=== PATIENT | female | born 1945 | race Caucasian/White ===

== ENCOUNTER → 2017-11-27 | Outpatient (CLI) | payer MEDICARE, OTHER ==
--- NOTE | 2017-11-27 13:53 | US ---
EXAM DESCRIPTION: Venous,Lower Extremity LT CLINICAL HISTORY: ACUTE EMBOLISM OF UNSPECIFIED DEEP VEINS COMPARISON: None Available. TECHNIQUE: Left lower extremity venous duplex FINDINGS: Doppler evaluation of the left lower extremity deep veins was performed. Normal color flow is seen in the common femoral, superficial femoral, profunda femoral and greater saphenous veins. Normal flow is seen in the popliteal vein and veins below the knee in the calf. Normal venous compressibility and flow augmentation. IMPRESSION: Negative for evidence of deep venous thrombosis on left lower extremity venous Doppler sonogram. Electronically signed by: Erich Serra MD 11/27/2017 1:52 PM CDT
== END ==
LOC: US 08:15
PROVIDERS: ATTEND Nurse Practitioner Family
DX: I82.402 Acute embolism and thrombosis of unspecified deep veins of left lower extremity (principal)

== ENCOUNTER → 2018-04-11 | Outpatient (CLI) | payer OTHER ==
--- NOTE | 2018-04-11 16:27 | US ---
EXAM DESCRIPTION: Pelvis Transvaginal CLINICAL HISTORY: 73 years Female, ABN VAGINAL BLEEDING COMPARISON: None. TECHNIQUE: Multiple static transverse and longitudinal sonographic images of the pelvis were obtained transabdominally and transvaginally. FINDINGS: The uterus is enlarged and heterogenous and measures 16.7 x 9.8 x 10.5 cm. There is a 12.6 x 9.8 x 10.5 cm heterogenous mass in the region of the endometrium. Findings are concerning for endometrial carcinoma versus large fibroid. Bilateral ovaries are not visualized. No evidence of free fluid. IMPRESSION: 12.6 x 9.8 x 10.5 cm heterogenous mass is noted in the region of the endometrial canal of the uterus. Findings are concerning for endometrial carcinoma versus large fibroid. MRI of the pelvis with and without contrast can be performed for further evaluation. Electronically signed by: Desi Simons MD 04/11/2018 4:25 PM [employer]
== END ==
LOC: US 14:01
PROVIDERS: ATTEND Nurse Practitioner Family
DX: N93.9 Abnormal uterine and vaginal bleeding, unspecified (principal); R19.09 Other intra-abdominal and pelvic swelling, mass and lump

== ENCOUNTER → 2018-05-17 | Outpatient (CLI) | payer OTHER ==
--- NOTE | 2018-05-17 11:42 | RAD ---
EXAM DESCRIPTION: Chest,2 Views CLINICAL HISTORY: ENCOUNTER FOR SCREENING FOR CARDIOVASCULAR DISORDERS COMPARISON: None TECHNIQUE: PA/lateral FINDINGS: Heart size is normal with normal pulmonary vascularity. No pleural effusion or pneumothorax. Patchy infiltrate or partial volume loss in the lingula. Lungs are otherwise clear with no consolidating infiltrate. Lateral view shows intact sternum and T-spine. IMPRESSION: No acute process is identified in the chest. Electronically signed by: Erich Serra MD 05/17/2018 11:41 AM [employer]
== END ==
LOC: LAB.O 09:50
PROVIDERS: ATTEND Nurse Practitioner Family
DX: N95.0 Postmenopausal bleeding (principal); Z13.6 Encounter for screening for cardiovascular disorders

== ENCOUNTER → 2018-08-13 | Outpatient (CLI) | payer OTHER | LOC: GRHH 15:16 | PROVIDERS: ATTEND Nurse Practitioner Family | DX: R41.82 Altered mental status, unspecified (principal) ==

== ENCOUNTER → 2018-08-19 | Outpatient (CLI) | payer OTHER | LOC: GRHH 15:04 | PROVIDERS: ATTEND Family Medicine | DX: E87.6 Hypokalemia (principal) ==

== ENCOUNTER → 2018-08-24 | Outpatient (CLI) | payer OTHER | LOC: GRHH 09:15 | PROVIDERS: ATTEND Nurse Practitioner Family | DX: K59.1 Functional diarrhea (principal) ==

== ENCOUNTER → 2018-08-29 | Outpatient (CLI) | payer OTHER | LOC: GRHH 11:55 | PROVIDERS: ATTEND Nurse Practitioner Family | DX: E87.6 Hypokalemia (principal); N39.0 Urinary tract infection, site not specified ==

== ENCOUNTER → 2018-10-04 | Outpatient (CLI) | payer OTHER | LOC: GRHH 09:31 | PROVIDERS: ATTEND Family Medicine | DX: R19.7 Diarrhea, unspecified (principal); Z86.19 Personal history of other infectious and parasitic diseases ==